=== PATIENT | male | born 1965 | race Caucasian/White ===

== ENCOUNTER 2016-12-22 07:47 | Day surgery (SDC) | payer BC ==
[2016-12-22] MEDS ORDERED: PROPOFOL 10 MG/ML VIAL IV ONE (15:14)
[2016-12-22] MEDS ORDERED: MIDAZOLAM HCL 2MG/2ML VIAL IV ONE (15:14)
[2016-12-22] MEDS ORDERED: LIDOCAINE 2% MDV (20MG/ML) 20ML VIAL IV ONE (15:14)
--- NOTE | 2016-12-24 12:20 | Operative Note ---
OPERATIVE REPORT DATE OF PROCEDURE: 12/22/2016. SURGEON: Terrell Callaway D.O. REFERRING PHYSICIAN: Kaleb Ariza Jr., D.O. PREOPERATIVE DIAGNOSIS: Screening colonoscopy. POSTOPERATIVE DIAGNOSIS: Screening colonoscopy. PROCEDURE: Colonoscopy with polypectomy. DESCRIPTION OF PROCEDURE: The patient is a 51-year-old male. He was brought to the endoscopy suite and was placed in the supine position. Appropriate monitoring was placed including nasal 02, pulse oximetry, and blood pressure cuff. The patient was then rotated into the left lateral position. Propofol anesthesia was titrated to effect. At this time a digital rectal examination was done which revealed no internal masses. At this time a [id number] colonoscope was inserted into the patient's rectum. It was advanced up to the sigmoid, up to the descending colon, and to the transverse colon, down to the ascending colon, and to the cecum. Direct mucosal visualization was done, both on insertion and with withdrawal of the scope. Once the cecum was reached, it was identified by the appendiceal orifice and the ileocecal valve. Respective photograph was taken. At this time the scope was slowly withdrawn, inspecting all mucosal surface areas. There were normal folds and distensibility seen. All parts of the colon were grossly normal. I did encounter a small polypoid lesion in the sigmoid which was removed with cold jumbo forceps. Complete retrieval and hemostasis was noted. At this time, the scope was slowly withdrawn. Retroflex maneuver was done in the rectum. This revealed minimal internal hemorrhoidal disease. At this time the scope was straightened and gas was evacuated. The scope was slowly removed. FINDINGS AT THE TIME OF COLONOSCOPY: 1. Sigmoid colon polyp. 2. Grade 1 hemorrhoids. PLAN: Recommend repeating this in three to five years or sooner if any problems arise. Terrell Callaway D.O. Date Time JOB NUMBER: [id number] cc: Kaleb Ariza Jr., D.O. [facility]
== END 2016-12-22 09:15 | disposition home or self-care (01) ==
LOC: HOP 07:47
PROVIDERS: ATTEND Surgery
DX: Z12.11 Encounter for screening for malignant neoplasm of colon (principal); K63.5 Polyp of colon; R73.03 Prediabetes; K64.0 First degree hemorrhoids